=== PATIENT | male | born 1965 | race Caucasian/White ===

== ENCOUNTER 2023-09-03 22:45 | Emergency (ER) | payer OTHER, SELFPAY ==
[2023-09-03 22:47] VITALS: BP 142/89
--- NOTE | 2023-09-04 00:05 | ED.MUSCINJ ---
HPI-Injury
General
Chief Complaint: Musculo-Skeletal Complaint
Source: patient
Exam Limitations: none
Time Seen by Provider: 09/03/23 23:39
Travel History
Have you had any contact with someone who has COVID-19?: No
Do you have any symptoms of coronavirus? Fever > 100 degrees, chills, cough, shortness of breath, sore throat, loss of taste or smell, muscle aches, or headache?: No
History of Present Illness-Injury
Initial Injury comments:
58-year-old [id number] male presents complaining of pain and deformity to right long finger he sustained today after jamming the tip of his finger. He notes he is unable to straighten his finger. No other complaints at this time
Phy Exam
Physical Exam
Physical Exam:
General: Well-appearing male no acute respiratory distress
Musculoskeletal exam: Right long finger with flexion deformity noted at the DIP joint. Unable to extend the finger. Relatively nontender. There is somewhat of a hyperextension deformity at the PIP passively.
Skin is intact
Injury Course
Orders/Labs/Results
Orders:
Orders
09/03/23 22:51
CR Finger(s)/thumb Min 2 Vw Rt Urgent
Comment:
Reason For Exam: injury
Indicate Which Finger:: Middle Finger
MDM/Problems Addressed
Differential Diagnosis Includes:
Right finger pain with deformity. Question fracture versus dislocation versus tendon injury
I personally visualized x-rays of the right long finger which demonstrate flexion deformity of the DIP joint but no fracture. I suspect a mallet finger. Patient was placed in a extension splint for the finger. He was advised follow-up with hand
specialist. Strict instructions were given to keep the finger in extension at all times
*Critical Care Note
Total Time (30-74mins, 75-104mins- exclusive of procedures): Not Applicable
ED Attending Note
-
Portions of this chart may have been created with voice recognition software.� Occasional wrong word or��sound alike� substitutions may have occurred due to the inherent limitations of voice recognition software.
Discharge Plan
Departure
Patient Disposition: Home (Routine Discharge)
Date of Disposition: 09/04/23
Time of Disposition: 00:06
Patient with high blood pressure during this ER visit?: No
Discharge Problem:
Mallet finger
Instructions: Muscle and Bone Pain (DC)
Prescriptions:
No Action
aspirin 81 MG tablet,delayed release (DR/EC)
81 mg PO DAILY
levothyroxine 125 MCG tablet
125 mcg PO DAILY
rosuvastatin 10 MG tablet
10 mg PO
jvawuwrt-kvn-spsn fum-folic ac 1 EACH tablet
1 tab PO DAILY
Referrals:
Kaela August I., DO [Active] -
NONE,* [Family Provider] -
Activity Restrictions/Additional Instructions:
Use extension splint at all times. You may take ibuprofen if needed for pain. Follow-up with hand specialist for further evaluation
Interventions
Interventions:
*Risk Screen - Suicide Last Done: 09/03/23 22:47
*General Assessment Last Done: 09/03/23 22:47
*Neglect/Abuse Screening Last Done: 09/03/23 22:47
ED- Fall Risk Assessment Last Done: 09/03/23 23:42
ED-Musculoskeletal Assessment Last Done: 09/03/23 23:42
Discharge Date and Time
Print Language: ROMANSH
== END 2023-09-04 00:13 | disposition home or self-care (01) ==
LOC: EMR 22:45
PROVIDERS: EMERGENCY PHYSICIAN Emergency Medicine
DX: M20.011 Mallet finger of right finger(s) (principal)
CPT/HCPCS: 99283; 29125; 73140

== ENCOUNTER → 2024-01-19 07:53 | Outpatient (REF) | payer OTHER, SELFPAY | LOC: DHCBC/DCA 07:53 | PROVIDERS: ATTENDING PHYSICIAN Internal Medicine Cardiovascular Disease; FAMILY PHYSICIAN Family Medicine | DX: E78.5 Hyperlipidemia, unspecified (principal); R06.09 Other forms of dyspnea; E66.9 Obesity, unspecified | CPT/HCPCS: 78452; 93017; A9500 ==

== ENCOUNTER → 2024-01-24 11:18 | Outpatient (REF) | payer OTHER, SELFPAY | LOC: RCS 11:18 | PROVIDERS: ATTENDING PHYSICIAN Internal Medicine Cardiovascular Disease; FAMILY PHYSICIAN Family Medicine | DX: E78.5 Hyperlipidemia, unspecified (principal); R06.09 Other forms of dyspnea; E66.9 Obesity, unspecified | CPT/HCPCS: 93306 ==